=== PATIENT | female | born 1995 | race African-American/Black ===

== ENCOUNTER 2017-09-18 08:12 | Emergency (ER) | payer OTHER ==
[2017-09-18] MEDS: KETOROLAC 60 MG/2 ML VIAL (J1885) IM (09:30)
[2017-09-18] MEDS: KETOROLAC 30 MG/ML VIAL (J1885) IV (09:37)
[2017-09-18] MEDS: PERCOCET 5MG/325MG TAB PO (09:37)
== END 2017-09-18 10:15 | disposition home or self-care (01) ==
LOC: M ED 08:12
DX: S06.0X0A Concussion without loss of consciousness, initial encounter (principal); S16.1XXA Strain of muscle, fascia and tendon at neck level, initial encounter; V49.49XA Driver injured in collision with other motor vehicles in traffic accident, initial encounter; Y92.410 Unspecified street and highway as the place of occurrence of the external cause
CPT/HCPCS: J1885